=== PATIENT | female | born 1980 | race Caucasian/White ===

== ENCOUNTER 2017-12-06 12:11 | Emergency (ER) | payer BC ==
[~2017-12-06] VITALS: Ht 165.1 cm; Wt 65.8 kg
[2017-12-06 12:14] VITALS: BP 151/66
--- NOTE | 2017-12-06 12:23 | NUR ---
[facility] in [facility] - 12/06/17 at 1228 by MED1 PT AMB TO BED3
--- NOTE | 2017-12-06 12:23 | NUR ---
PT AMUBLATED TO ER ROOM 3 @ 12:20
--- NOTE | 2017-12-06 12:23 | NUR ---
Patient being evaluated by DR ACOSTA at bedside.
--- NOTE | 2017-12-06 12:24 | NUR ---
37/F BIB SELF WITH C/O RT FLANK PAIN RADIATING TO BACK, WITH NAUSEA FOR A WEEK.HX: APPENDECTOMY , R HIP REPLACEMENT X 6MO AGO. SKIN IS PINK/WARM/DRY; AAOX4 WITH EVEN AND STEADY GAIT; LUNGS CLEAR BL. PATIENT STATES PAIN OF 10/10 AT THIS TIME. PATIENT POSITIONED FOR COMFORT; HOB ELEVATED; BEDRAILS UP X2; BED DOWN. ER MD MADE AWARE OF PT STATUS.
--- NOTE | 2017-12-06 12:33 | NUR ---
[facility] in [facility] - 12/06/17 at 1501 by MED1 Patient being evaluated by Tirso ACOSTA at bedside.
[2017-12-06] MEDS ORDERED: ONDANSETRON 4 MG ODT PO ONE (12:35)
[2017-12-06] MEDS ORDERED: KETOROLAC 30 MG/ML VIAL IM ONE (12:35)
--- NOTE | 2017-12-06 12:43 | NUR ---
LAB AT BEDSIDE.
--- NOTE | 2017-12-06 12:44 | NUR ---
PROVIDED WATER AND JUICE, PT. IS UNABLE TO PROVIDE URINE AT THIS TIME.
--- NOTE | 2017-12-06 12:46 | NUR ---
US AT BEDSIDE.
[2017-12-06 12:53] LABS: BASOPHILS % (AUTO) 0.3 % (0.0-2.0); EOSINOPHILS % (AUTO) 0.4 % (0.0-4.0); HEMATOCRIT 39.9 % (36-48); HEMOGLOBIN 13.5 g/dL (12.0-16.0); LYMPHOCYTES # (AUTO) 1.7 K/uL (2.5-16.5); LYMPHOCYTES % (AUTO) 35.4 % (20.5-51.1); MEAN CORPUSCULAR HEMOGLOBIN 31 pg (27-31); MEAN CORPUSCULAR HGB CONC 34 g/dL (33-37); MEAN CORPUSCULAR VOLUME 92.3 fL (80-94); MONOCYTES # (AUTO) 0.4 K/uL (0.8-1.0); MONOCYTES % (AUTO) 8.4 % (1.7-9.3); NEUTROPHILS # (AUTO) 2.6 K/uL (1.8-7.7); NEUTROPHILS % (AUTO) 55.5 % (42.2-75.2); PLATELET COUNT (AUTO) 213 K/uL (140-450); RED BLOOD CELL COUNT(AUTO) 4.32 MIL/uL (4.20-5.40); RED CELL DISTRIBUTION WIDTH 13.2 % (11.6-13.7); WHITE BLOOD COUNT (AUTO) 4.8 K/uL (4.8-10.8)
[2017-12-06 13:19] LABS: ANION GAP 12.8 (8-16); CARBON DIOXIDE 26.7 mmol/L (21-32); CREATININE 0.9 mg/dL (0.6-1.3); POTASSIUM 3.5 mmol/L (3.5-5.1)
[2017-12-06 13:32] LABS: APPEARANCE,URINE CLEAR (CLEAR); BILIRUBIN,URINE NEGATIVE (NEGATIVE); BLOOD, URINE NEGATIVE (NEGATIVE); COLOR,URINE YELLOW (YELLOW); LEUKOCYTE ESTERASE ,URINE NEGATIVE (NEGATIVE); NITRITE, URINE NEGATIVE (NEGATIVE); UGLUCOSE NEGATIVE (NEGATIVE)
--- NOTE | 2017-12-06 13:41 | NUR ---
PT. TAKEN TO CT VIA WHEELCHAIR WITH TECH.
--- NOTE | 2017-12-06 13:48 | NUR ---
PT. BACK FROM CT, STEADY GAIT, AAOX4.
[2017-12-06] MEDS ORDERED: ACETAMINOPHEN EXTRA STRENGTH 500 MG TAB PO ONE (14:00)
--- NOTE | 2017-12-06 15:00 | NUR ---
Patient being reevaluated by DR ACOSTA at bedside.
[2017-12-06] MEDS ORDERED: NACL 0.9% 1,000 ML IV ONE (15:05)
--- NOTE | 2017-12-06 15:40 | NUR ---
us at bedside.
[2017-12-06 16:26] VITALS: BP 99/65
== END 2017-12-06 16:26 | disposition home or self-care (01) ==
LOC: MED 12:11
DX: K59.00 Constipation, unspecified (principal); Z98.51 Tubal ligation status; Z90.89 Acquired absence of other organs; Z96.641 Presence of right artificial hip joint
CPT/HCPCS: 36415; 74176; 76705; 76856; 80053; 81003; 81025; 83690; 85025; 96360; 96372; 99285; J1885; J7030; Q0092; S0119